=== PATIENT | male | born 1980 | race Caucasian/White ===

== ENCOUNTER 2017-10-15 19:27 | Emergency (ER) | payer MEDICAID ==
[2016-02-23 12:06] VITALS: BMI 32.5
[~2017-10-15 19:27] MED LIST: VITAMIN D31000 UNI2 PO
[2017-10-15 20:49] LABS: BASOPHILS 0.4 % (0-2); EOSINOPHILS 0.4 % (0-7); HEMATOCRIT 44.8 % (42.0-54.0); HEMOGLOBIN 15.6 g/dL (13.5-17.5); IMMATURE GRANULOCYTES 0.2 % (0-5); LYMPHOCYTES 29.3 % (15-50); MCH 32.7 pg (26.0-34.0); MCHC 34.8 g/dL (31.0-37.0); MCV 93.9 fL (80.0-100.0); MEAN PLATELET VOLUME 10.1 fL (7.4-10.4); MONOCYTES 7.2 % (2-11); NEUTROPHILS 62.5 % (40-80); PLATELET COUNT 151 10x3/uL (130-400); RBC 4.77 10x6/uL (4.20-6.10); RDW 14.2 % (11.5-14.5); WBC 9.9 10x3/uL (4.8-10.8)
== END 2017-10-15 21:40 | disposition home or self-care (01) ==
LOC: D.ER 19:27
PROVIDERS: Physician Assistant
DX: L02.211 Cutaneous abscess of abdominal wall (principal); F79 Unspecified intellectual disabilities

== ENCOUNTER 2017-10-19 09:47 | Emergency (ER) | payer MEDICAID ==
[2016-02-23 12:06] VITALS: BMI 32.5
== END 2017-10-19 13:33 | disposition home or self-care (01) ==
LOC: D.ER 09:47
DX: Z98.890 Other specified postprocedural states (principal); T50.905A Adverse effect of unspecified drugs, medicaments and biological substances, initial encounter; Y92.019 Unspecified place in single-family (private) house as the place of occurrence of the external cause; R11.0 Nausea